=== PATIENT | female | born 1945 | race Caucasian/White ===

== ENCOUNTER 2016-04-26 13:02 | Inpatient (IN) | payer BC ==
[~2016-04-26] VITALS: Ht 167.6 cm; Wt 90.8 kg
[2016-04-26] VITALS (13 sets, daily range): BP systolic 110–169; RESP 16–20; TEMP 97.5–97.9; Ht 167.6 cm; Wt 90.8 kg
[2016-04-26] MEDS ORDERED: DILTIAZEM 50 MG/10 ML VIAL IV ONE (13:15)
[2016-04-26] MEDS ORDERED: ED DILTIAZEM DRIP 125 ML IV ONE (13:15)
[2016-04-26] MEDS ORDERED: ASPIRIN 81 MG CHEW TAB ONE (13:29)
[2016-04-26] MEDS ORDERED: DIGOXIN 0.5 MG/2 ML AMP ONE (15:11)
[2016-04-26] MEDS ORDERED: Furosemide 40 MG/4 ML VIAL ONE (16:40)
[2016-04-26] MEDS ORDERED: Furosemide 20 MG/2 ML VIAL IV ONE (19:15)
[2016-04-26] MEDS ORDERED: LORAZEPAM 0.5 MG TAB PO PRN (19:15)
[2016-04-26] MEDS ORDERED: CARDIZEM 1 MG/ML DRIP 125 ML IV SCH (19:15)
[2016-04-26] MEDS ORDERED: NITROGLYCERIN 50 MG/250 ML IV PRN (19:15)
[2016-04-26] MEDS ORDERED: ONDANSETRON 4 MG VIAL IV PRN (19:15)
[2016-04-26] MEDS ORDERED: DOCUSATE SOD 100 MG CAP PO PRN (19:15)
[2016-04-26] MEDS ORDERED: NITROGLYCERIN SL 0.4 MG TAB SL PRN (19:15)
[2016-04-26] MEDS ORDERED: MORPHINE 2 MG/ML SYR IV PRN (19:15)
[2016-04-26] MEDS ORDERED: SALINE FLUSH 10 ML FLUSH PRN (19:15)
[2016-04-26] MEDS ORDERED: ASPIRIN 81 MG CHEW TAB PO ONE (19:15)
[2016-04-26] MEDS ORDERED: TEMAZEPAM 7.5 MG CAP PO PRN (19:15)
[2016-04-26] MEDS ORDERED: SODIUM CHLORIDE 0.9% FLUSH BAG 500 ML IV PRN (19:15)
[2016-04-26] MEDS ORDERED: TRAMADOL 50 MG TAB PO PRN (19:15)
[2016-04-26] MEDS: SALINE FLUSH 10 ML FLUSH SCH (20:49)
[2016-04-26] MEDS: METOPROLOL XL 50 MG TAB PO SCH (23:08)
[2016-04-26] MEDS: ENOXAPARIN 80 MG/0.8 ML SYR SUBQ SCH (23:10)
[2016-04-27] VITALS (19 sets, daily range): BP systolic 85–150; RESP 16–20; TEMP 97.7–98.3
[2016-04-27] MEDS: METOPROLOL XL 50 MG TAB PO SCH ×2 (09:13→20:15)
[2016-04-27] MEDS: SALINE FLUSH 10 ML FLUSH SCH ×2 (09:13→20:15)
[2016-04-27] MEDS: ASPIRIN EC 81 MG TAB PO SCH (09:13)
[2016-04-27] MEDS ORDERED: METOPROLOL XL 50 MG TAB PO ONE (09:40)
[2016-04-27] MEDS: ENOXAPARIN 80 MG/0.8 ML SYR SUBQ SCH ×2 (11:34→23:39)
[2016-04-27] MEDS: Furosemide 20 MG/2 ML VIAL IV SCH ×2 (11:35→17:34)
[2016-04-28] VITALS (7 sets, daily range): BP systolic 123–138; RESP 18–19; TEMP 97.2–98.5
[2016-04-28] MEDS ORDERED: KCL CR 20 MEQ TAB PO ONE (07:40)
[2016-04-28] MEDS: ASPIRIN EC 81 MG TAB PO SCH (09:38)
[2016-04-28] MEDS: METOPROLOL XL 50 MG TAB PO SCH ×2 (09:38→20:47)
[2016-04-28] MEDS: Furosemide 20 MG/2 ML VIAL IV SCH ×2 (09:38→17:11)
[2016-04-28] MEDS: SALINE FLUSH 10 ML FLUSH SCH ×2 (09:39→20:47)
[2016-04-28] MEDS: ENOXAPARIN 80 MG/0.8 ML SYR SUBQ SCH ×2 (11:59→23:45)
[2016-04-28] MEDS: Methimazole 5 MG TAB PO SCH ×2 (17:13→23:45)
[2016-04-28] MEDS: ACETAMINOPHEN 325 MG TAB PO PRN (23:45)
[2016-04-29 03:33] VITALS: BP_SYST 152; RESP 18; TEMP 97.4
[2016-04-29 07:57] VITALS: BP_SYST 131; RESP 18; TEMP 97.9
[2016-04-29] MEDS: Furosemide 20 MG/2 ML VIAL IV SCH ×2 (08:08→16:29)
[2016-04-29] MEDS: Methimazole 5 MG TAB PO SCH ×3 (08:08→23:36)
[2016-04-29] MEDS: SALINE FLUSH 10 ML FLUSH SCH ×2 (08:09→20:47)
[2016-04-29] MEDS: METOPROLOL XL 50 MG TAB PO SCH ×2 (08:09→20:47)
[2016-04-29] MEDS: ASPIRIN EC 81 MG TAB PO SCH (08:09)
[2016-04-29] MEDS: ENOXAPARIN 80 MG/0.8 ML SYR SUBQ SCH ×2 (10:53→23:36)
[2016-04-29 12:00] VITALS: BP_SYST 136; RESP 18; TEMP 98
[2016-04-29] MEDS: LISINOPRIL 2.5 MG TAB PO SCH (14:56)
[2016-04-29 15:26] VITALS: BP_SYST 131; RESP 18; TEMP 97.4
[2016-04-29 19:00] VITALS: BP_SYST 128; RESP 18; TEMP 98
[2016-04-29] MEDS: ACETAMINOPHEN 325 MG TAB PO PRN (20:48)
[2016-04-29 23:23] VITALS: BP_SYST 127; RESP 18; TEMP 97.9
[2016-04-30 03:43] VITALS: BP_SYST 126; RESP 18; TEMP 97.6
[2016-04-30 08:10] VITALS: BP_SYST 137; RESP 18; TEMP 97.8
[2016-04-30] MEDS ORDERED: MISSING DOSE XX ONE (08:35)
[2016-04-30] MEDS: Methimazole 5 MG TAB PO SCH (09:08)
[2016-04-30] MEDS: Furosemide 20 MG/2 ML VIAL IV SCH (09:08)
[2016-04-30] MEDS: SALINE FLUSH 10 ML FLUSH SCH (09:08)
[2016-04-30] MEDS: ASPIRIN EC 81 MG TAB PO SCH (09:09)
[2016-04-30] MEDS: METOPROLOL XL 50 MG TAB PO SCH (09:09)
[2016-04-30] MEDS: LISINOPRIL 2.5 MG TAB PO SCH (09:09)
[2016-04-30] MEDS: ENOXAPARIN 80 MG/0.8 ML SYR SUBQ SCH (11:00)
[2016-04-30 11:43] VITALS: BP_SYST 130; RESP 18; TEMP 98.1
[2016-04-30 12:13] VITALS: BP_SYST 130; RESP 18; TEMP 98.1
== END 2016-04-30 12:46 | disposition home or self-care (01) | DRG 308 ==
LOC: ENRESERVTM → ENRESERVDT → ER 13:02 → EMR 16:25 → ENPENDDIS 16:25 → PCU 18:40 → MC2 04-27 19:38 → PCU 04-27 19:40
PROVIDERS: ADMIT Internal Medicine Cardiovascular Disease; ATTEND Internal Medicine Cardiovascular Disease
DX: I48.91 Unspecified atrial fibrillation (principal); I50.21 Acute systolic (congestive) heart failure; E05.90 Thyrotoxicosis, unspecified without thyrotoxic crisis or storm; I11.0 Hypertensive heart disease with heart failure; I42.0 Dilated cardiomyopathy; E87.6 Hypokalemia
CPT/HCPCS: 36415; 71010; 80048; 80053; 80061; 82550; 82553; 83735; 83880; 84439; 84443; 84445; 84484; 85025; 85610; 85730; 86376; 93005; 93306; 94799; 96365; 96366; 96374; 96375